=== PATIENT | female | born 1980 | race Caucasian/White ===

== ENCOUNTER 2020-08-01 05:32 | Inpatient (IN) | payer OTHER ==
[2020-08-01] MEDS ORDERED: Celecoxib 200 MG Cap PO ONE (06:00)
[2020-08-01] MEDS ORDERED: Acetaminophen 500 MG Tab PO ONE (06:00)
[2020-08-01] MEDS ORDERED: Scopolamine 1.5 MG Transdermal Patch TOP SCH (06:00)
[2020-08-01] MEDS ORDERED: Dextrose 5%-Lactated Ringers 1,000 ML IV SCH ×2 (06:00→11:15)
[2020-08-01] MEDS ORDERED: Glycopyrrolate 0.2 MG/ML 5 ML MDV ONE (07:24)
[2020-08-01] MEDS ORDERED: Ondansetron 4 MG/2 ML SDV ONE (07:24)
[2020-08-01] MEDS ORDERED: Dexamethasone 4 MG/ML SDV ONE (07:24)
[2020-08-01] MEDS ORDERED: Succinylcholine 200 MG/10 ML MDV ONE (07:24)
[2020-08-01] MEDS ORDERED: Neostigmine Methylsulfate 1 MG/ML 5 ML Syringe ONE (07:24)
[2020-08-01] MEDS ORDERED: fentaNYL 250 MCG/5 ML SDV ONE (07:24)
[2020-08-01] MEDS ORDERED: Rocuronium 50 MG/5 ML Vial ONE (07:24)
[2020-08-01] MEDS ORDERED: Propofol 200 MG/20 ML SDV ONE ×2 (07:24→07:28)
[2020-08-01] MEDS ORDERED: Lactated Ringers 1,000 ML ONE (07:27)
[2020-08-01] MEDS ORDERED: fentaNYL 100 MCG/2 ML SDV ONE ×2 (07:29→09:25)
[2020-08-01] MEDS ORDERED: cefOXitin 2 GM in Sodium Chloride 0.9% 50 ML IV ONE (07:45)
[2020-08-01] MEDS ORDERED: Magnesium Sulfate 3.4 GM in Sodium Chloride 0.9% 100 ML IV SCH (08:00)
[2020-08-01] MEDS ORDERED: Magnesium Sulfate 5.6 GM in Sodium Chloride 0.9% 250 ML IV ONE (08:00)
[2020-08-01] MEDS ORDERED: Ketamine 50 MG in Sodium Chloride 0.9% 49.5 ML IV SCH (08:00)
[2020-08-01] MEDS ORDERED: Ketamine 500 MG/5 ML MDV IV SCH (08:00)
[2020-08-01] MEDS: cefOXitin 2 GM Vial ONE ×2 (08:42→09:39)
[2020-08-01] MEDS ORDERED: hydrOXYzine HCL 100 MG/2 ML SDV IM ONE (10:23)
[2020-08-01] MEDS: HYDROmorphone 1 MG/ML Syringe IV PRN ×3 (11:25→22:16)
[2020-08-01] MEDS ORDERED: Cyclobenzaprine 10 MG Tab PO PRN (11:25)
[2020-08-01] MEDS ORDERED: ALPRAZolam 0.5 MG Tab PO PRN (11:31)
[2020-08-01] MEDS ORDERED: Ondansetron 4 MG/2 ML SDV IVPUSH PRN (12:00)
[2020-08-01] MEDS ORDERED: hydrOXYzine HCL 100 MG/2 ML SDV IM PRN (12:00)
[2020-08-01] MEDS ORDERED: Calcium Gluconate 10% 1 GM/10 ML SDV IVPUSH PRN (12:00)
[2020-08-01] MEDS ORDERED: HYDROmorphone 0.5 MG/0.5 ML Syringe IVPUSH PRN (12:00)
[2020-08-01] MEDS ORDERED: Labetalol 20 MG/4 ML Syringe IVPUSH PRN (12:00)
[2020-08-01] MEDS ORDERED: Metoclopramide 10 MG/2 ML SDV IVPUSH PRN (12:00)
[2020-08-01] MEDS ORDERED: Acetaminophen 500 MG Tab PO PRN (12:00)
[2020-08-01] MEDS ORDERED: diphenhydrAMINE 50 MG/ML SDV IVPUSH PRN (12:00)
[2020-08-01] MEDS: Lisinopril 5 MG Tab PO SCH (13:43)
[2020-08-01] MEDS: Acetaminophen 500 MG Tab PO SCH ×2 (13:43→22:11)
[2020-08-01] MEDS: Escitalopram 20 MG Tab PO SCH (13:43)
[2020-08-01] MEDS: Pantoprazole 40 MG Vial IVPUSH SCH (13:43)
[2020-08-01] MEDS: cefOXitin 2 GM in Sodium Chloride 0.9% 50 ML IV SCH ×2 (13:46→19:27)
[2020-08-01] MEDS: MVI, Adult with Vitamin K 10 ML, Thiamine 200 MG, Zinc/Copper/Manganese/Selenium 1 ML i... IV SCH ×4 (15:35)
[2020-08-01] MEDS: Heparin Sodium 5,000 Units/ML Vial SUBCUT SCH (18:01)
[2020-08-02] MEDS: cefOXitin 2 GM in Sodium Chloride 0.9% 50 ML IV SCH ×3 (01:22→13:13)
[2020-08-02] MEDS ORDERED: Iopamidol 612 MG/ML 50 ML SDV PO STA (03:45)
[2020-08-02] MEDS: oxyCODONE 5 MG Tab PO PRN ×3 (04:27→20:55)
[2020-08-02] MEDS: Heparin Sodium 5,000 Units/ML Vial SUBCUT SCH ×3 (04:28→17:38)
[2020-08-02] MEDS: Acetaminophen 500 MG Tab PO SCH ×5 (04:28→21:20)
[2020-08-02] MEDS ORDERED: Ondansetron 4 MG Tab.DIS PO PRN (07:39)
[2020-08-02] MEDS ORDERED: hydrOXYzine HCl 25 MG Tab PO PRN (07:40)
[2020-08-02] MEDS ORDERED: Dextrose 5%-Lactated Ringers 1,000 ML IV SCH (07:45)
[2020-08-02] MEDS: Celecoxib 200 MG Cap PO SCH ×2 (08:30→20:57)
[2020-08-02] MEDS: Estradiol 0.5 MG Tab PO SCH (08:31)
[2020-08-02] MEDS: Lisinopril 5 MG Tab PO SCH (08:31)
[2020-08-02] MEDS: Escitalopram 20 MG Tab PO SCH (08:31)
[2020-08-02] MEDS: SCOPOLAMINE PATCH CHECK TOP SCH (08:31)
--- NOTE | 2020-08-02 09:04 | CR ---
[facility] HISTORY: Postbariatric surgery FINDINGS: Patient swallowed water-soluble contrast. Upright views of the abdomen show no evidence of extravasation or obstruction. There is a surgical drain in left upper quadrant. IMPRESSION: Status post bariatric surgery No extravasation or obstruction seen
--- NOTE | 2020-08-02 12:06 | PN ---
DATE OF SERVICE: 08/02/2020 SUBJECTIVE: Flakita is postoperative day #1, her upper GI was normal. Oral intake 700, output 3870. MIKEY drain put out 90 mL of a light pink drainage. Her magnesium had to be stopped a little bit early because of low blood pressure. REVIEW OF SYSTEMS: Remainder of review of systems negative for any pertinent positives and negatives. OBJECTIVE: GENERAL: Flakita Alfred is a pleasant 40-year-old female. She is alert and orientated. VITAL SIGNS: TPR; 98, 60, 116, blood pressure 114/57. HEENT: Negative. NECK: Supple. HEART: Regular rate and rhythm. LUNGS: Clear. ABDOMEN: Dressings dry and intact. Abdominal binder is on. MIKEY drain as above. EXTREMITIES: Without peripheral edema. ASSESSMENT: Laparoscopic Mukund-en-Y gastric bypass surgery, liver biopsy, repair of diaphragmatic hernia for morbid obesity hepatomegaly and diaphragmatic hernia. Date of procedure 08/01/2020. Surgeon: Arturo Winters MD. PLAN: 1. Decrease IV to 100 mL per hour. Dressing off, may shower. Step 2 gastric bypass diet with no cereal. 2. Atarax 25 mg q.4 hours p.r.n. pain. 3. Communication order for 3 med cups per hour, record at bedside. 4. Continue use of incentive spirometer. 5. We will evaluate p.r.n. or in a.m. Jesica Tom PA-C /[id number]
[2020-08-02] MEDS: Pantoprazole 40 MG Vial IVPUSH SCH (13:13)
[2020-08-02] MEDS: MVI, Adult with Vitamin K 10 ML, Thiamine 200 MG, Zinc/Copper/Manganese/Selenium 1 ML i... IV SCH ×4 (16:05)
[2020-08-03] MEDS: Acetaminophen 500 MG Tab PO SCH (05:26)
[2020-08-03] MEDS: Heparin Sodium 5,000 Units/ML Vial SUBCUT SCH (05:26)
[2020-08-03] MEDS ORDERED: Pantoprazole 40 MG Delayed-Release Granules 1 Packet PO SCH (07:30)
[2020-08-03] MEDS ORDERED: Magnesium Hydroxide 400 MG/5 ML Susp 30 ML Cup PO PRN (07:40)
[2020-08-03] MEDS: oxyCODONE 5 MG Tab PO PRN (08:01)
[2020-08-03] MEDS ORDERED: Cyanocobalamin (Vitamin B12) 1,000 MCG/ML SDV IM ONE (09:00)
[2020-08-03] MEDS: Lisinopril 5 MG Tab PO SCH (09:19)
[2020-08-03] MEDS: Escitalopram 20 MG Tab PO SCH (09:20)
[2020-08-03] MEDS: Estradiol 0.5 MG Tab PO SCH (09:20)
[2020-08-03] MEDS: Celecoxib 200 MG Cap PO SCH (09:20)
[2020-08-03] MEDS: SCOPOLAMINE PATCH CHECK TOP SCH (09:20)
--- NOTE | 2020-08-03 10:26 | DISCH ---
ADMISSION DIAGNOSES: 1. Morbid obesity. 2. Body mass index 38. 3. Essential hypertension. 4. Gastroesophageal reflux disease. 5. Anxiety. 6. Polycystic ovary syndrome. DISCHARGE DIAGNOSES: 1. Laparoscopic Mukund-en-Y gastric bypass surgery. 2. Liver biopsy. 3. Repair of diaphragmatic hernia. POSTOPERATIVE DIAGNOSES: 1. Morbid obesity. 2. Hepatomegaly. 3. Diaphragmatic hernia. 4. Date of procedure: 08/01/2020. Surgeon: Arturo Winters MD. HISTORY: Flakita Alfred is a pleasant 40-year-old female with longstanding history of morbid obesity and increasing comorbidities. After preoperative evaluation and discussion of possible risks and possible complications, she wished to proceed with surgical procedure. HOSPITAL COURSE: Flakita had no operative complications. On postoperative day #1, she was started on a step 2 gastric bypass diet. Her IV was decreased. She was ambulating and using her IS. On postoperative day #2, she was able to be discharged to home. Her vital signs were stable. Oral intake adequate at 1740. Urine output 2500. She did receive adequate dietary instruction and a vitamin B12 1000 mcg IM injection. PHYSICAL EXAMINATION: GENERAL: Flakita Alfred is a pleasant 40-year-old female. VITAL SIGNS: Height is 5 feet 9 inches, weight is 257 pounds, BMI is 38. TPR 96.9; 53; 18; blood pressure 118/48. HEENT: Negative. NECK: Supple. HEART: Regular rate and rhythm. LUNGS: Clear. ABDOMEN: Incisions look good. Sutures intact. MIKEY drain is still in, but will be removed prior to discharge. She has been wearing her abdominal binder. HOME MEDICATIONS: Oxycodone 5 mg p.o. q.6 hours p.r.n. pain, #28; Zofran ODT 4 mg sublingual q.4 hours p.r.n. nausea, #30; Celebrex 200 mg p.o. b.i.d. To resume home medication of Xanax 0.5 mg daily p.r.n., Lexapro 20 mg p.o. daily, estradiol 1 mg p.o. daily, lisinopril 5 mg p.o. daily scheduled, Zofran ODT 4 mg sublingual every 4 hours p.r.n. nausea #30. FOLLOWUP: To Jesica Tom PA-C, on 08/11/2020 at 9:15 a.m. DIET: Step 2 gastric bypass diet with no cereal until 08/16/2020. ACTIVITY: No lifting greater than 10 pounds for 2 weeks. Other activity: Walk at least 6 times daily inside your home. Driving: Do not drive for 1 week or within 6 hours of narcotic pain medication. Shower/bathing: May shower. DISCHARGE INSTRUCTIONS: Notify provider if any fever, increased pain, swelling, redness, drainage, nausea, or vomiting. Keep operative site clean and dry. Wear abdominal binder for 2 weeks and then as tolerated. SPECIAL INSTRUCTION: Use incentive spirometer 10 times every hour while awake for 1 week. /[id number]
--- NOTE | 2020-08-14 13:47 | OR ---
DATE OF PROCEDURE: 08/01/2020 SURGEON: Arturo Winters MD PREOPERATIVE DIAGNOSIS: Morbid obesity. POSTOPERATIVE DIAGNOSES: 1. Morbid obesity. 2. Marked hepatomegaly. 3. Paraesophageal diaphragmatic hernia. OPERATIVE PROCEDURES: 1. Laparoscopic Mukund-en-Y gastric bypass along with gastroenterostomy (06611). 2. Laurent-Cut needle liver biopsy (00857). 3. Repair of paraesophageal diaphragmatic hernia (06037). ANESTHESIA: General. FAMILY CONSUMER SCIENCE TEACHER: Jesica Tom PA-C INDICATIONS FOR PROCEDURE: This is a 40-year-old presenting with longstanding morbid obesity and increasingly significant comorbidities. After preoperative evaluation and discussion, she wished to proceed with a gastric bypass procedure. Potential risks of the procedure including bleeding, infection, leaks from various GI tract closures, problems with bowel obstruction over time as well as possibility of cardiopulmonary, septic, or hemorrhagic complications leading to were discussed, and the patient wishes to proceed. DETAILS OF PROCEDURE: The patient was taken to the operating room, where after general endotracheal anesthesia was induced, she was placed in a lithotomy position and the abdomen prepped and draped. 15 cm inferior and 5 cm left of the xiphoid process, transverse incision was made and the peritoneal cavity entered under direct vision with an Optiview trocar upon which 5 additional trocars were placed across the upper and mid abdomen and bilateral transversus abdominis plane blocks were placed. The patient was noted to have marked hepatomegaly with liver volume being roughly 2 to 3 times normal. Liver grossly fatty infiltrated. Laurent-Cut needle biopsies were obtained from left lobe of the liver. Minimal bleeding from the biopsy sites was controlled with electrocautery. The omentum was then divided in the midline up to the level of the transverse colon. This allowed identification of small bowel to the ligament of Treitz. Small bowel was then traced out 150 cm distal to that point where it was divided transversely with a CHEKO stapler. Small bowel was then traced out additional 175 cm where the [id number] enteroenterostomy was accomplished with internal firing of the Endo-CHEKO 60 mm stapler. Common opening was then closed transversely with the same stapler, angles anastomosed, and mesenteric defect approximated with some 0 Ethibond stitch along with fibrin sealant. The divided end of Mukund limb was then from the mesentery for a few centimeters, which allowed an antecolic position of the Mukund limb up to the level of esophagogastric junction without tension. The liver was then retracted anteriorly. The patient noted to have a moderate-sized paraesophageal diaphragmatic hernia. The hernia contained some omentum as well as some perigastric fat and gastric fundus. This was reduced and the peritoneum overlying it incised and reflected downward. The diaphragmatic hernia was then repaired anteriorly with some 0 Ethibond sutures and reinforced with PTFE pledgets. Gastrointestinal catheter then inflated 15 mL and pulled up snugly against the EG junction. Gastric wall over the apex balloon was then marked with electrocautery and balloon catheter deflated and withdrawn. The lesser omental tissue adjacent to the gastric cardia was then incised allowing dissection behind the stomach at that level. Pouch formation was then initiated with a transverse firing of the CHEKO stapler at the level of the cauterized xu in the gastric cardia and pouch completed with additional firings of CHEKO heriberto up to and through the angle of His. Upon completion of the pouch, both staple lines appeared to be intact. The anvil of a 25 mm EEA stapler was then attached to [place] sump type tube. The latter was brought down through the mouth, taken out through a small opening in the gastric pouch, allowing the anvil likewise to be pulled down to within the gastric pouch. The divided end of Mukund limb was then opened and the main body of the EEA stapler passed several centimeters into the lumen of the small bowel, brought up the anvil, united with it, thus creating the gastrojejunostomy. Upon removal of stapler, double donuts of mucosa were noted within it. Small bowel was closed off with a vascular staple line. The gastrojejunostomy was reinforced with some 3-0 Vicryl seromuscular stitch along with fibrin sealant. Leak test was accomplished with injection of 120 mL of air in the gastric pouch while it was submerged in a cefoxitin-containing saline solution. No leaks were identified. A single Salomon- Regalado drain was taken out through the left lateral trocar site and positioned adjacent to the gastric cardia and from there up into the splenic fossa. The trocars were then sequentially removed, the peritoneal cavity deflated. Incisions were closed with some 4-0 Vicryl skin stitch and the drain affixed with 4-0 Vicryl stitch as well. Then, the patient taken to the recovery room in satisfactory condition. There were no evident complications. Physician certified physician assistant, Jesica Tom, played an essential role in assisting in this case, helping to position the patient, retract structures as needed, as well as suturing and cutting sutures when indicated. Her presence improved patient safety and decreased the operative time. Arturo Winters MD /[id number]
== END 2020-08-03 10:00 | disposition home or self-care (01) | DRG 621 ==
LOC: JP.MS 05:32 → JP.SDS 05:32 → EDSTATUS 07:30 → JP.MS 10:15
PROVIDERS: ADMIT Surgery; ATTEND Surgery
PROC: 0D164ZA Bypass Stomach to Jejunum, Percutaneous Endoscopic Approach (ICD-10-PCS; principal; 2020-08-01)
PROC: 0FB24ZX Excision of Left Lobe Liver, Percutaneous Endoscopic Approach, Diagnostic (ICD-10-PCS; 2020-08-01)
PROC: 0BQT4ZZ Repair Diaphragm, Percutaneous Endoscopic Approach (ICD-10-PCS; 2020-08-01)
DX: E66.01 Morbid (severe) obesity due to excess calories (principal); K21.9 Gastro-esophageal reflux disease without esophagitis; I10 Essential (primary) hypertension; R16.0 Hepatomegaly, not elsewhere classified; K44.9 Diaphragmatic hernia without obstruction or gangrene; F41.9 Anxiety disorder, unspecified; E28.2 Polycystic ovarian syndrome; Z68.38 Body mass index [BMI] 38.0-38.9, adult; Z90.710 Acquired absence of both cervix and uterus; Z90.49 Acquired absence of other specified parts of digestive tract; Z79.899 Other long term (current) drug therapy
CPT/HCPCS: 36415; 74240; 74240-26; 82962; 86850; 86900; 86901; 88307; 88313; 93005; 93010; 94762; A9270-GY; C9113; J0171; J0330; J0694; J1100; J1170; J1644; J2405; J2704; J2710; J2795; J3010; J3410; J3411; J3420; J3475; J3490; J7050; J7120; J7121; Q9967